=== PATIENT | female | born 1950 | race Caucasian/White ===

== ENCOUNTER 2016-08-22 20:25 | Emergency (ER) | payer MEDICARE, OTHER ==
[2010-09-09 10:56] VITALS: BMI 25.4
[2016-08-22 21:47] LABS: BASOPHILS 0.1 % (0.0-2.0); EOSINOPHILS 1.2 % (0-7); HEMATOCRIT 44.5 % (36.0-48.0); HEMOGLOBIN 14.6 g/dL (12-16); IMMATURE GRANULOCYTES 0.4 % (0-5); MCH 29.3 pg (26.0-34.0); MCHC 32.8 g/dL (31.0-37.0); MCV 89.4 fL (80.0-100.0); MONOCYTES 17.1 % (2-11); NEUTROPHILS 68.2 % (40-80); RBC 4.98 10x6/uL (4.00-5.40); RDW 14.3 % (11.5-14.5); WBC 7.4 10x3/uL (4.8-10.8)
[2016-08-22 21:48] LABS: PLATELET COUNT 195 10x3/uL (130-400)
[2016-08-22 21:50] LABS: ANION GAP 16.5 mmol/L (8-16); CALCIUM 9.7 mg/dL (8.5-10.1); CARBON DIOXIDE 23.8 mmol/L (21.0-32.0); CREATININE - SERUM 1.1 mg/dL (0.6-1.3); POTASSIUM - SERUM 4.3 mmol/L (3.5-5.1)
== END 2016-08-22 21:45 | disposition home or self-care (01) ==
LOC: D.ER 20:25
PROVIDERS: Family Medicine; Nurse Practitioner Acute Care
DX: B34.9 Viral infection, unspecified (principal); F17.200 Nicotine dependence, unspecified, uncomplicated; E03.9 Hypothyroidism, unspecified; F31.9 Bipolar disorder, unspecified; K27.9 Peptic ulcer, site unspecified, unspecified as acute or chronic, without hemorrhage or perforation

== ENCOUNTER 2017-01-14 20:05 | Emergency (ER) | payer MEDICARE, OTHER ==
[2010-09-09 10:56] VITALS: BMI 25.4
[2017-01-14 20:22] LABS: BASOPHILS 0.2 % (0-2); EOSINOPHILS 3.1 % (0-7); HEMATOCRIT 40.9 % (36.0-48.0); HEMOGLOBIN 13.3 g/dL (12-16); IMMATURE GRANULOCYTES 0.4 % (0-5); LYMPHOCYTES 28.6 % (15-50); MCH 29.9 pg (26.0-34.0); MCHC 32.5 g/dL (31.0-37.0); MCV 91.9 fL (80.0-100.0); MEAN PLATELET VOLUME 9.9 fL (7.4-10.4); MONOCYTES 9.4 % (2-11); NEUTROPHILS 58.3 % (40-80); PLATELET COUNT 234 10x3/uL (130-400); RBC 4.45 10x6/uL (4.00-5.40); RDW 13.8 % (11.5-14.5); WBC 9.9 10x3/uL (4.8-10.8)
[2017-01-14 21:06] LABS: ALBUMIN 3.8 g/dL (3.4-5.0); ANION GAP 9.4 mmol/L (8-16); BILIRUBIN - TOTAL 0.23 mg/dL (0.2-1.3); CALCIUM 9.2 mg/dL (8.5-10.1); CARBON DIOXIDE 31.1 mmol/L (21.0-32.0); CREATININE - SERUM 1.2 mg/dL (0.6-1.3); POTASSIUM - SERUM 3.5 mmol/L (3.5-5.1); PROTEIN - SERUM 6.7 g/dL (6.4-8.2)
== END 2017-01-14 21:50 | disposition home or self-care (01) ==
LOC: D.ER 20:05
PROVIDERS: Emergency Medicine
DX: R50.9 Fever, unspecified (principal); R05 Cough; I10 Essential (primary) hypertension; F31.89 Other bipolar disorder; K27.3 Acute peptic ulcer, site unspecified, without hemorrhage or perforation; E03.9 Hypothyroidism, unspecified; F17.200 Nicotine dependence, unspecified, uncomplicated

== ENCOUNTER 2018-04-29 10:29 | Emergency (ER) | payer OTHER, MEDICARE ==
[~2018-04-29] VITALS: Ht 152.4 cm; Wt 60.5 kg
[2018-04-29 10:34] VITALS: Ht 152.4 cm; Wt 60.5 kg
[2018-04-29] MEDS ORDERED: CHERATUSSIN AC (10:38)
[2018-04-29] MEDS ORDERED: OMEPRAZOLE40 MG PO (10:39)
[2018-04-29] MEDS ORDERED: PRINIVIL10 MG PO (10:39)
[2018-04-29] MEDS ORDERED: VITAMIN D31000 UNIT PO (10:39)
[2018-04-29] MEDS ORDERED: NORTRIPTYLINE H50 MG PO (10:40)
[2018-04-29] MEDS ORDERED: LEVOXYL100 MCG PO (10:40)
[2018-04-29] MEDS ORDERED: PEPCID AC20 MG PO (10:40)
[2018-04-29] MEDS ORDERED: KLONOPIN1 MG PO (10:41)
[2018-04-29] MEDS ORDERED: LOVASTATIN20 MG PO (10:41)
[2018-04-29] MEDS ORDERED: LITHIUM CARBON150 MG PO (10:42)
[2018-04-29] MEDS ORDERED: NEXAVAR200 MG (10:42)
[2018-04-29] MEDS ORDERED: ANORO ELLIPTA1 EACH INH (10:43)
[2018-04-29] MEDS ORDERED: PROBIOTIC1 EAC1 (10:43)
[2018-04-29] MEDS ORDERED: LITHOBID 300 M300 MG PO (10:44)
[2018-04-29 11:18] LABS: BASOPHILS 0.5 % (0-2); EOSINOPHILS 6.4 % (0-7); HEMATOCRIT 40.7 % (36.0-48.0); HEMOGLOBIN 13.3 g/dL (12-16); IMMATURE GRANULOCYTES 2.8 % (0-5); MCH 29.6 pg (26.0-34.0); MCHC 32.7 g/dL (31.0-37.0); MCV 90.4 fL (80.0-100.0); MEAN PLATELET VOLUME 9.9 fL (7.4-10.4); MONOCYTES 10.7 % (2-11); NEUTROPHILS 58.6 % (40-80); PLATELET COUNT 291 10x3/uL (130-400); RDW 14.5 % (11.5-14.5); WBC 11.3 10x3/uL (4.8-10.8)
[2018-04-29 11:35] LABS: ALBUMIN 3.8 g/dL (3.4-5.0); ANION GAP 12.5 mmol/L (8-16); BILIRUBIN - TOTAL 0.27 mg/dL (0.2-1.3); CALCIUM 9.6 mg/dL (8.5-10.1); CARBON DIOXIDE 27.6 mmol/L (21.0-32.0); CREATININE - SERUM 1.4 mg/dL (0.6-1.3); POTASSIUM - SERUM 4.1 mmol/L (3.5-5.1); PROTEIN - SERUM 7.2 g/dL (6.4-8.2)
[2018-04-29] MEDS ORDERED: LEVAQUIN750 MG PO (13:11)
[2018-04-29] MEDS ORDERED: BENZONATATE200 MG PO (13:11)
[2018-04-29] MEDS ORDERED: ALBUTEROL SULF8.5 GM INH (13:12)
[2018-04-29 13:37] VITALS: BP 105/64
== END 2018-04-29 13:37 | disposition home or self-care (01) ==
LOC: D.ER 10:29
PROVIDERS: Family Medicine
DX: J40 Bronchitis, not specified as acute or chronic (principal); R06.02 Shortness of breath; R53.1 Weakness; I10 Essential (primary) hypertension; J44.9 Chronic obstructive pulmonary disease, unspecified; F17.200 Nicotine dependence, unspecified, uncomplicated

== ENCOUNTER 2019-12-17 06:48 | Day surgery (SDC) | payer OTHER, MEDICARE ==
[~2019-12-17] VITALS: Ht 152.4 cm; Wt 61.4 kg
[~2019-12-17 06:48] MED LIST: ALBUTEROL SULF8.5 GM INH; ANORO ELLIPTA1 EACH INH; BENZONATATE200 MG PO; CHERATUSSIN AC; KLONOPIN1 MG PO; LEVAQUIN750 MG PO; LEVOXYL100 MCG PO; LITHIUM CARBON150 MG PO; LITHOBID 300 M300 MG PO; LOVASTATIN20 MG PO; NEXAVAR200 MG; NORTRIPTYLINE H50 MG PO; OMEPRAZOLE40 MG PO; PEPCID AC20 MG PO; PRINIVIL10 MG PO; PROBIOTIC1 EAC1; VITAMIN D31000 UNIT PO
[2019-12-17 07:31] LABS: CALCIUM 10.1 mg/dL (8.5-10.1); CARBON DIOXIDE 27.4 mmol/L (21.0-32.0); CREATININE - SERUM 1.4 mg/dL (0.6-1.3); POTASSIUM - SERUM 4.4 mmol/L (3.5-5.1)
[2019-12-17 07:32] LABS: BASOPHILS 0.3 % (0-2); EOSINOPHILS 2.9 % (0-7); HEMOGLOBIN 14.8 g/dL (12-16); IMMATURE GRANULOCYTES 0.6 % (0-5); LYMPHOCYTES 29.2 % (15-50); MCH 28.5 pg (26.0-34.0); MCHC 32.2 g/dL (31.0-37.0); MCV 88.6 fL (80.0-100.0); MEAN PLATELET VOLUME 9.1 fL (7.4-10.4); MONOCYTES 9.3 % (2-11); NEUTROPHILS 57.7 % (40-80); PLATELET COUNT 247 10x3/uL (130-400); RBC 5.19 10x6/uL (4.00-5.40); RDW 15.1 % (11.5-14.5); WBC 7.8 10x3/uL (4.8-10.8)
[2019-12-17 08:04] VITALS: BP 117/67; Ht 152.4 cm; Wt 61.4 kg
--- NOTE | 2019-12-17 09:13 | NUR ---
0905-RECD TO ROOM FROM GI LAB 0910-DR RUSSELL IN TO REPORT FINDINGS TO PT.
--- NOTE | 2019-12-17 09:55 | NUR ---
0935-D/C HOME VIA WITH SPOUSE, IZABELLA.
--- NOTE | 2019-12-17 11:44 | OP ---
PATIENT NAME: LION JONES MEDICAL RECORD: [id number] :54 LOCATION:D[facility] ADMISSION DATE: SURGEON: MARISSA RUSSELL DO DATE OF OPERATION: 12/17/2019 PROCEDURE: Colonoscopy with polypectomy. INDICATIONS FOR PROCEDURE: Lower abdominal pain, irregular bowel habits, family history positive for cancer of the GI tract in the patient's brother. SCOPE: Olympus video pediatric colonoscope. MEDICATIONS: Propofol 400 mg IV per anesthesia. WITHDRAWAL TIME: 21 minutes. ESTIMATED BLOOD LOSS: Minimal. COMPLICATIONS: None. FINDINGS: Informed consent was given. The patient was made comfortable with the above medication. After reaching an adequate level of sedation by slow IV push, the patient was placed on her left side. A digital rectal examination was performed and it was normal. The endoscope was then advanced under direct visualization through the rectum to the cecum, confirmed by the presence of the appendiceal orifice and ileocecal valve. The endoscope was slowly withdrawn and mucosa was carefully examined. The prep quality was fair. There were multiple polyps visualized on today's examination. They ranged in size from 2 mm-6 mm in diameter. They were all removed using hot forceps. Three of these polyps were located in the transverse colon. Four were located in the descending colon and 2 were located in the sigmoid colon. There were no other findings on today's examination. Retroflexion was performed in the rectum with visualization of a normal appearing rectal wall. The endoscope was withdrawn from the patient. The patient tolerated the procedure well and there were no complications. IMPRESSION: 1. Six polyps as described above, removed using hot forceps. 2. Otherwise, normal colonoscopy to cecum. PLAN AND RECOMMENDATIONS: 1. Discharge home when recovery parameters are met. 2. Follow up biopsy specimen results. 3. High fiber diet. 4. Supplement diet with 1 tablespoon of fiber daily. 5. Continue current medications. 6. Dicyclomine 20 mg t.i.d. p.r.n. loose stools or abdominal pain and cramping. 7. Recall colonoscopy will be dependent on pathology results, but I anticipate this being in 3 years. 8. Proceed with upper endoscopy for upper abdominal symptoms. TRANSINT:[id number] Voice Confirmation ID: [id number] DOCUMENT ID: [id number] OPERATIVE REPORT [id number] LION JONES MARISSA RUSSELL DO at 1144 CC: [id number] DICTATION DATE: 12/17/19 0858 FILTERS ASSEMBLER: 12/17/19 1130 [facility] 12/17/19 [id number] [place] [address]
== END 2019-12-17 09:35 | disposition home or self-care (01) ==
LOC: D.OPS 06:48
PROVIDERS: Anesthesiology; ATTEND Internal Medicine Gastroenterology
DX: R10.30 Lower abdominal pain, unspecified (principal); R19.4 Change in bowel habit; Z80.0 Family history of malignant neoplasm of digestive organs; K63.5 Polyp of colon; J45.909 Unspecified asthma, uncomplicated; E07.9 Disorder of thyroid, unspecified; E78.5 Hyperlipidemia, unspecified; K21.9 Gastro-esophageal reflux disease without esophagitis; Z72.0 Tobacco use

== ENCOUNTER 2019-12-31 09:34 | Day surgery (SDC) | payer OTHER, MEDICARE ==
[~2019-12-31] VITALS: Ht 152.4 cm; Wt 61.4 kg
[2019-12-31 10:19] LABS: BASOPHILS 0.3 % (0-2); EOSINOPHILS 3.9 % (0-7); HEMATOCRIT 41.4 % (36.0-48.0); HEMOGLOBIN 13.6 g/dL (12-16); IMMATURE GRANULOCYTES 0.4 % (0-5); LYMPHOCYTES 27.2 % (15-50); MCHC 32.9 g/dL (31.0-37.0); MCV 88.3 fL (80.0-100.0); MEAN PLATELET VOLUME 9.3 fL (7.4-10.4); MONOCYTES 9.5 % (2-11); NEUTROPHILS 58.7 % (40-80); PLATELET COUNT 224 10x3/uL (130-400); RBC 4.69 10x6/uL (4.00-5.40); RDW 14.6 % (11.5-14.5); WBC 7.9 10x3/uL (4.8-10.8)
[2019-12-31 10:26] LABS: CALCIUM 9.5 mg/dL (8.5-10.1); CARBON DIOXIDE 29.5 mmol/L (21.0-32.0); CREATININE - SERUM 1.3 mg/dL (0.6-1.3); POTASSIUM - SERUM 4.5 mmol/L (3.5-5.1)
[2019-12-31 10:45] VITALS: BP 96/58; Ht 152.4 cm; Wt 61.4 kg
--- NOTE | 2019-12-31 13:40 | NUR ---
DC INSTRUCTIONS GIVEN TO PT/SPOUSE. STATE UNDERSTANDING. PT IS TOLERATING LIQUIDS. WILL CONTINUE TO MONITOR.
--- NOTE | 2019-12-31 13:52 | NUR ---
DC'D IV CATH FULLY INTACT.
--- NOTE | 2019-12-31 13:53 | NUR ---
PT LEFT UNIT VIA WC AT 1359
--- NOTE | 2020-01-01 15:26 | OP ---
PATIENT NAME: LION JONES MEDICAL RECORD: [id number] :54 LOCATION:[facility] ADMISSION DATE: SURGEON: MARISSA RUSSELL DO DATE OF OPERATION: 12/31/2019 PROCEDURE: EGD with biopsies. INDICATIONS FOR PROCEDURE: Epigastric tenderness, GERD, hiatal hernia without obstruction or gangrene. SCOPE: Olympus video gastroscope. MEDICATIONS: Propofol 200 mg IV per anesthesia. ESTIMATED BLOOD LOSS: Minimal. COMPLICATIONS: None. FINDINGS: Informed consent was given. The patient was made comfortable with the above medication. After reaching an adequate level of sedation by slow IV push, the patient was placed on her left side. The endoscope was advanced under direct visualization through the mouth to the second portion of the duodenum with ease. The upper, middle, and lower thirds of the esophagus appeared normal. There were rings throughout the entire esophagus, which suggest the possibility of eosinophilic esophagitis versus motility abnormalities. Cold forceps biopsies were taken from the midesophagus to submit for histopathology and to rule out the presence of eosinophils. At the GE junction, there were minor changes consistent with LA class A reflux-induced esophagitis. The endoscope was advanced beyond the GE junction into the stomach and retroflexed to view the cardia, where a small sliding hiatal hernia was present. There were no associated ulcerations or abnormalities with hernia. The fundus and body of the stomach appeared normal. As you approached the antrum and prepyloric region of the stomach, there were changes of mild chronic gastritis consisting of erythema, granularity, and friability. Cold forceps, biopsies were taken from the antrum and incisura to submit for histopathology and to rule out the presence of H. pylori. The endoscope was advanced beyond the pylorus into the duodenum, which appeared normal to the second portion. Cold forceps, biopsies were taken to submit for histopathology. The endoscope was withdrawn from the patient. The patient tolerated the procedure well and there were no complications. IMPRESSION: 1. LA class A reflux-induced esophagitis. 2. Small sliding hiatal hernia. 3. Gastritis. PLAN AND RECOMMENDATIONS: 1. Discharge home when recovery parameters are met. 2. Follow up biopsy specimen results. 3. GERD diet and reflux precautions. 4. Continue Nexium but increase dose to 40 mg daily until followup appointment. 5. Add famotidine 40 mg at bedtime to regimen until followup. 6. If dysphagia persists at time of followup, consider esophageal manometry study. OPERATIVE REPORT [id number] LION JONES TRANSINT:[id number] Voice Confirmation ID: [id number] DOCUMENT ID: [id number] MARISSA RUSSELL DO at 1526 CC: [id number] DICTATION DATE: 12/31/19 1311 HEAVY THREADER: 12/31/191 [facility] 12/31/19 [address] [place] [address]
== END 2019-12-31 13:59 | disposition home or self-care (01) ==
LOC: D.OPS 09:34
PROVIDERS: Anesthesiology; ATTEND Internal Medicine Gastroenterology
DX: R10.13 Epigastric pain (principal); K21.9 Gastro-esophageal reflux disease without esophagitis; K44.9 Diaphragmatic hernia without obstruction or gangrene; J45.909 Unspecified asthma, uncomplicated; E78.5 Hyperlipidemia, unspecified; Z72.0 Tobacco use